=== PATIENT | male | born 1975 | race Caucasian/White ===

== ENCOUNTER 2016-09-29 21:31 | Emergency (ER) | payer BC ==
[2016-09-29] MEDS ORDERED: Ketorolac 30 MG/ML SDV IVPUSH ONE (22:00)
[2016-09-29] MEDS ORDERED: Sodium Chloride 0.9% 1,000 ML IV SCH (22:00)
[2016-09-29] MEDS ORDERED: Sodium Chloride 0.9% 2.5 ML Syringe FLUSH PRN (22:00)
[2016-09-29] MEDS ORDERED: Sodium Chloride 0.9% 10 ML Syringe FLUSH PRN (22:00)
--- NOTE | 2016-09-29 22:04 | EDM.PDOC ---
ED HPI RENAL/ - General Chief Complaint: Genitourinary Problem Stated Complaint: ABDOMINAL PAIN Time Seen by Provider: 09/29/16 21:55 Source of Information: Reports: Patient History Limitations: Reports: No limitations - History of Present Illness INITIAL COMMENTS - FREE TEXT/NARRATIVE: HISTORY AND PHYSICAL: History of present illness: [41-year-old male with a history of kidney stones and prior cholecystectomy now presents to the emergency department complaining of left flank pain radiating to his abdomen. Patient states he thinks he has another kidney stone. This pain has been intermittent today. Denies fevers chills sweats or shaking chills. Pain is not worse with movement. Review of systems: As per history of present illness and below otherwise all systems reviewed and negative. Past medical history: As per history of present illness and as reviewed below otherwise noncontributory. Surgical history: As per history of present illness and as reviewed below otherwise noncontributory. Social history: No reported history of drug or alcohol abuse. Family history: As per history of present illness and as reviewed below otherwise noncontributory. Physical exam: HEENT: Atraumatic, normocephalic, pupils reactive, negative for conjunctival pallor or scleral icterus, mucous membranes moist, throat clear, neck supple, nontender, trachea midline. Lungs: Clear to auscultation, breath sounds equal bilaterally, chest nontender. Heart: S1S2, regular, negative for clicks, rubs, or JVD. Abdomen: Soft, nondistended, nontender. Negative for masses or hepatosplenomegaly. Negative for costovertebral tenderness. Pelvis: Stable nontender. Genitourinary: Deferred. Rectal: Deferred. Extremities: Atraumatic, negative for cords or calf pain. Neurovascular unremarkable. Neuro: Awake, alert, oriented. Cranial nerves II through XII unremarkable. Cerebellum unremarkable. Motor and sensory unremarkable throughout. Exam nonfocal. Diagnostics: [] Therapeutics: [] Impression: [] Plan: [] Definitive disposition and diagnosis as appropriate pending reevaluation and review of above. 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 Genitourinary History: Reports: Renal calculus Other Musculoskeletal History: bilateral foot surgery 80's Other Hematologic History: hepatitis c - Infectious Disease History Infectious Disease History: Reports: Chicken pox, Hepatitis C - Past Surgical History GI Surgical History: Reports: Cholecystectomy, Colonoscopy Other Male Surgeries/Procedures: Stent on left kidney Social & Family History - Family History Family Medical History: Noncontributory - Tobacco Use Smoking Status *Q: Current Every Day Smoker Years of Tobacco use: 30 Packs/Tins Daily: 0.5 Used Tobacco, but Quit: No Second Hand Smoke Exposure: No - Caffeine Use Caffeine Use: Reports: Coffee Caffeine Use Comment: 3cups/day - Alcohol Use Days Per Week of Alcohol Use: 1 Number of Drinks Per Day: 4 Total Drinks Per Week: 4 - Recreational Drug Use Recreational Drug Use: No Drug Use in Last 12 Months: No Recreational Drug Type: Reports: Methamphetamine Recreational Drug Last Use: 4 years ago ED ROS GENERAL - Review of Systems Review Of Systems: See Below (Per history of present illness) ED EXAM, RENAL/ - Physical Exam Exam: See Below (Per history of present illness) Course - Vital Signs Text/Narrative:: Signs and symptoms consistent with possible renal colic versus left flank and abdominal pain of other etiology. Patient stable and well-appearing. Afebrile. Labs unremarkable CT negative for acute surgical finding however patient does have retained stool in left colon consistent with constipation. Patient's blood pressure mildly elevated. He has no history of essential hypertension. Discuss this result with patient and he is aware to follow up with his PCP for reevaluation and initiation of antihypertensive treatment as needed. Patient aware to use MiraLax [id number] as needed for constipation and regularity. He agrees with outpatient followup. Strict return precautions given Last Recorded V/S: Last Vital Signs Temp 36.4 C 09/30/16 00:50 Pulse 78 09/30/16 00:50 Resp 16 09/30/16 00:50 BP 133/84 09/30/16 00:50 Pulse Ox 97 09/30/16 00:50 - Orders/Labs/Meds Orders: Active Orders 24 hr Category Date Time Status Abdomen Pelvis w wo Cont [CT] Stat Exams 09/29/16 22:26 Taken Peripheral IV Insertion Adult [OM.PC] Stat Oth 09/29/16 22:00 Ordered Labs: Laboratory Tests 09/29/16 09/29/16 09/29/16 Range/Units 21:35 22:00 22:00 WBC 8.24 (4.0-11.0) K/uL RBC 5.29 (4.50-5.90) M/uL Hgb 16.9 (13.0-17.0) g/dL Hct 45.7 (38.0-50.0) % MCV 86.4 (80.0-98.0) fL MCH 31.9 (27.0-32.0) pg MCHC 37.0 (31.0-37.0) g/dL RDW Std Deviation 41.0 (28.0-62.0) fl RDW Coeff of Taj 13 (11.0-15.0) % Plt Count 151 (150-400) K/uL MPV 11.60 (7.40-12.00) fL Neut % (Auto) 45.9 L (48.0-80.0) % Lymph % (Auto) 43.7 H (16.0-40.0) % [place] % (Auto) 6.6 (0.0-15.0) % Eos % (Auto) 3.4 (0.0-7.0) % Baso % (Auto) 0.4 (0.0-1.5) % Neut # 3.8 (1.4-5.7) K/uL Lymph # 3.6 H (0.6-2.4) K/uL [place] # 0.5 (0.0-0.8) K/uL Eos # 0.3 (0.0-0.7) K/uL Baso # 0.0 (0.0-0.1) K/uL Nucleated RBC % 0.0 /100WBC Nucleated RBCs # 0 K/uL Sodium 140 (136-146) mmol/L Potassium 3.8 (3.5-5.1) mmol/L Chloride 109 (98-110) mmol/L Carbon Dioxide 19 L (21-31) mmol/L BUN 10 (6.0-23.0) mg/dL Creatinine 1.0 (0.6-1.5) mg/dL Est Cr Clr Drug Dosing 103.54 mL/min Estimated GFR (MDRD) > 60.0 ml/min Glucose 116 H (60-110) mg/dL Calcium 9.2 (8.8-10.8) mg/dL Urine Color YELLOW Urine Appearance CLEAR Urine pH 6.0 (5.0-8.0) Ur Specific [place] 1.025 (1.001-1.035) Urine Protein NEGATIVE (NEGATIVE) mg/dL Urine Glucose (UA) NEGATIVE (NEGATIVE) mg/dL Urine Ketones NEGATIVE (NEGATIVE) mg/dL Urine Occult Blood MODERATE (NEGATIVE) Urine Nitrite NEGATIVE (NEGATIVE) Urine Bilirubin NEGATIVE (NEGATIVE) Urine Urobilinogen 0.2 (<2.0) EU/dL Ur Leukocyte Esterase NEGATIVE (NEGATIVE) Urine RBC 2-6 (0-2/HPF) Urine WBC 0-2 (0-5/HPF) Ur Epithelial Cells RARE (NONE-FEW) Urine Bacteria RARE (NEGATIVE) Urine Mucus LIGHT (NONE-MOD) Meds: Medications Discontinued Medications Generic Name Dose Route Start Last Admin Trade Name Freq PRN Reason Stop Dose Admin Hydromorphone HCl 0.5 mg 09/29/16 23:02 09/29/16 23:11 Dilaudid IM 09/29/16 23:03 0.5 mg ONETIME ONE Administration Sodium Chloride 1,000 mls @ 999 mls/hr 09/29/16 22:00 09/29/16 22:14 Normal Saline IV 999 mls/hr ASDIRECTED ROSEMARY Administration Ketorolac Tromethamine 30 mg 09/29/16 22:00 09/29/16 22:15 Toradol IVPUSH 09/29/16 22:01 30 mg ONETIME ONE Administration Sodium Chloride 10 ml 09/29/16 22:00 Saline Flush FLUSH ASDIRECTED PRN Keep Vein Open Sodium Chloride 2.5 ml 09/29/16 22:00 Saline Flush FLUSH ASDIRECTED PRN Keep Vein Open Departure - Departure Time of Disposition: 00:39 Disposition: Home, Self-Care 01 Condition: good Clinical Impression: Constipation, Abdominal pain, Hypertension Instructions: Abdominal Pain, Adult, Constipation, Adult, Hypertension Referrals: PCP,None [Primary Care Provider] - Forms: ED Department Discharge Additional Instructions: Extensive workup was done today for evaluation of your abdominal and flank pain. You have no kidney stone in your kidney or ureter. Your labs were unremarkable. Her CAT scan showed only constipation in your left descending colon. This is likely the cause of your pain today. Your urine does not show signs of infection or in the urine from a recently passed kidney stone. Your blood pressure was elevated today and suggestive of hypertension. Followup with your Dr. in one to 2 days for reevaluation and to determine if you have essential hypertension which requires treatment. Return immediately for new severe or worsening symptoms - My Orders Last 24 Hours: My Active Orders 09/29/16 22:00 Peripheral IV Insertion Adult [OM.PC] Stat 09/29/16 22:26 Abdomen Pelvis w wo Cont [CT] Stat - Assessment/Plan Last 24 Hours: My Active Orders 09/29/16 22:00 Peripheral IV Insertion Adult [OM.PC] Stat 09/29/16 22:26 Abdomen Pelvis w wo Cont [CT] Stat
[2016-09-29 22:21] LABS: CHLORIDE,CL 109 mmol/L (98-110); SODIUM,NA 140 mmol/L (136-146)
[2016-09-29] MEDS ORDERED: HYDROmorphone 1 MG/ML Syringe IM ONE (23:02)
[2016-09-30 01:06] VITALS: BP 133/84
--- NOTE | 2016-09-30 19:51 | CT ---
EXAM DATE: 09/29/16 PATIENT'S AGE: 41 Patient: IVAN CRAWFORD Facility: [place], [place] Site . Site : [id number] Study: CT Abdomen/Pelvis W/ and W/O Cont [id number]/19/2017 11:03:37 PM Ordering Physician: Jose Su Final Report: INDICATION: Right-sided pain TECHNIQUE: CT abdomen and pelvis acquired with and without IV contrast. COMPARISON: None FINDINGS: Lower chest: Unremarkable. Liver: Unremarkable. Spleen: Benign punctate splenic calcifications. Pancreas: Unremarkable. Gallbladder and bile ducts: Gallbladder is absent. Kidneys: Punctate nonobstructing calculus superior pole left kidney. Adrenal glands: Unremarkable. GI tract: Retained stool in the ascending colon. . Appendix is normal. Vascular structures: Unremarkable. Lymph nodes: Unremarkable. Miscellaneous: Unremarkable. No free air or significant free fluid. Pelvic Organs: Unremarkable. Bones: Unremarkable for age. IMPRESSION: No renal, ureteral or bladder calculi. No hydronephrosis or hydroureter. Normal urinary bladder. Normal appendix. Retained stool in the ascending colon. Dictated by Paul Schafer MD @ 09/29/2016 11:47:24 PM Dictated by: Paul Schafer MD @ 09/29/2016 23:47:27 (Electronic Signature) Report Signed by Proxy and Original Signed Document filed in the Medical Record. [facility]
== END 2016-09-30 00:50 | disposition home or self-care (01) ==
LOC: MW.ED 21:31
DX: K59.00 Constipation, unspecified (principal); R10.9 Unspecified abdominal pain; I10 Essential (primary) hypertension; B19.20 Unspecified viral hepatitis C without hepatic coma; R16.0 Hepatomegaly, not elsewhere classified; F17.200 Nicotine dependence, unspecified, uncomplicated; Z88.0 Allergy status to penicillin
CPT/HCPCS: 36415; 74178; 80048; 81001; 85025; 96361; 96372; 96374; 99284; J1170; J1885; J7040

== ENCOUNTER 2018-09-30 11:20 | Emergency (ER) | payer BC ==
--- NOTE | 2018-09-30 11:28 | EDM.PDOC ---
ED HPI GENERAL MEDICAL PROBLEM - General Chief Complaint: Abdominal Pain Stated Complaint: STOMACH BURNING Time Seen by Provider: 09/30/18 11:21 Source of Information: Reports: Patient History Limitations: Reports: No Limitations - History of Present Illness INITIAL COMMENTS - FREE TEXT/NARRATIVE: HISTORY AND PHYSICAL: History of present illness: Patient is a 43-year-old male who presents to the ED today with concerns of abdominal pain that he rates an 8 out of 10. Patient states that this started last night and he has had numerous episodes of vomiting without blood. He states he's also had several episodes of watery diarrhea. He states he feels as if his "stomach is burning". He states he is also felt sweaty without chills and has not checked any temperatures at home. He has had a history of cholecystectomy. Patient states he's not been able to eat or drink today due to the vomiting. Patient denies headache, burning with urination, testicular pain, dizziness, shortness of breath, difficulties breathing, palpitations, or all other GI, , cardiovascular, or respiratory concerns. Patient denies any health history. Review of systems: As per history of present illness and below otherwise all systems reviewed and negative. Past medical history: As per history of present illness and as reviewed below otherwise noncontributory. Surgical history: As per history of present illness and as reviewed below otherwise noncontributory. Social history: No reported history of drug or alcohol abuse. Family history: As per history of present illness and as reviewed below otherwise noncontributory. Physical exam: General: Patient sitting comfortably in no acute distress and nontoxic appearing. Patient is slightly sweaty on exam. HEENT: Atraumatic, normocephalic, pupils reactive, negative for conjunctival pallor or scleral icterus, mucous membranes dry, throat clear, neck supple, nontender, trachea midline. No meningeal signs. Lungs: Clear to auscultation, breath sounds equal bilaterally, chest nontender. Heart: S1S2, regular, negative for clicks, rubs, or overt murmur. Abdomen: Obese. Severe pain to palpation of the generalized abdomen. Firm, distended. Negative for masses or hepatosplenomegaly. Negative for costovertebral tenderness. No rigidity, rebound, guarding. Pelvis: Stable nontender. Genitourinary: Deferred. Rectal: Deferred. Extremities: Atraumatic, negative for cords or calf pain. Neurovascular unremarkable. Neuro: Awake, alert, oriented. Cranial nerves II through XII unremarkable. Cerebellum unremarkable. Motor and sensory unremarkable throughout. Exam nonfocal. Notes: On exam, patient did seem slightly sweaty with severe generalized abdominal pain. We'll do lab work and imaging today. Labs today are reassuring. Chest x-ray shows no acute cardiopulmonary process. Patient does have trace blood in his urine. Diagnostics: CBC, CMP, troponin, lipase, UA, abdominal and pelvic CT, stool studies, EKG, cardiac monitoring, chest x-ray, H. pylori Therapeutics: Saline, Zofran, Toradol Prescriptions: Impression: [] Plan: [] Definitive disposition and diagnosis as appropriate pending reevaluation and review of above. lower bilateral abdominal Pain Score (Numeric/FACES): 10 - Related Data Allergies Allergy/AdvReac Type Severity Reaction Status Date / Time Penicillins AdvReac Nausea and Verified 09/30/18 11:35 Vomiting Home Meds: Home Meds . 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 Genitourinary History: Reports: Renal Calculus Other Musculoskeletal History: bilateral foot surgery 80's Other Hematologic History: hepatitis c - Infectious Disease History Infectious Disease History: Reports: Chicken Pox, Hepatitis C - Past Surgical History GI Surgical History: Reports: Cholecystectomy, Colonoscopy Other Male Surgeries/Procedures: Stent on left kidney Social & Family History - Family History Family Medical History: Noncontributory - Caffeine Use Caffeine Use: Reports: Coffee Caffeine Use Comment: 3cups/day ED ROS GENERAL - Review of Systems Review Of Systems: ROS reveals no pertinent complaints other than HPI. ED EXAM, GI/ABD - Physical Exam Exam: See Below (see dictation) Course - Vital Signs Last Recorded V/S: Last Vital Signs Temp 97.4 F 09/30/18 11:36 Pulse 93 09/30/18 11:36 Resp 16 09/30/18 11:36 BP 159/102 H 09/30/18 11:36 Pulse Ox 96 09/30/18 11:36 - Orders/Labs/Meds Orders: Active Orders 24 hr Category Date Time Status Cardiac Monitoring [RC] . DIRECTED Care 09/30/18 11:46 Active EKG Documentation Completion [RC] STAT Care 09/30/18 11:43 Active CDIFF TOX A+B [OP] Stat Lab 09/30/18 11:47 Ordered CULTURE STOOL + CAMPY+SHIGATOX [RM] Stat Lab 09/30/18 11:47 Ordered OVA & PARASITES BY IMMUNOASSAY [MREF] Stat Lab 09/30/18 11:47 Ordered Labs: Laboratory Tests 09/30/18 09/30/18 09/30/18 Range/Units 11:49 11:49 13:30 WBC 11.05 H (4.0-11.0) K/uL RBC 5.49 (4.50-5.90) M/uL Hgb 17.5 H (13.0-17.0) g/dL Hct 46.9 (38.0-50.0) % MCV 85.4 (80.0-98.0) fL MCH 31.9 (27.0-32.0) pg MCHC 37.3 H (31.0-37.0) g/dL RDW Std Deviation 40.9 (28.0-62.0) fl RDW Coeff of Taj 13 (11.0-15.0) % Plt Count 169 (150-400) K/uL MPV 11.80 (7.40-12.00) fL Neut % (Auto) 71.2 (48.0-80.0) % Lymph % (Auto) 16.6 (16.0-40.0) % [place] % (Auto) 10.6 (0.0-15.0) % Eos % (Auto) 1.3 (0.0-7.0) % Baso % (Auto) 0.3 (0.0-1.5) % Neut # (Auto) 7.9 H (1.4-5.7) K/uL Lymph # (Auto) 1.8 (0.6-2.4) K/uL [place] # (Auto) 1.2 H (0.0-0.8) K/uL Eos # (Auto) 0.1 (0.0-0.7) K/uL Baso # (Auto) 0.0 (0.0-0.1) K/uL Nucleated RBC % 0.0 /100WBC Nucleated RBCs # 0 K/uL Sodium 141 (136-148) mmol/L Potassium 3.6 (3.5-5.1) mmol/L Chloride 104 (98-107) mmol/L Carbon Dioxide 23.6 (21.0-32.0) mmol/L BUN 9 (7.0-18.0) mg/dL Creatinine 1.1 (0.8-1.3) mg/dL Est Cr Clr Drug Dosing 92.22 mL/min Estimated GFR (MDRD) > 60.0 ml/min Glucose 124 H (74-106) mg/dL Calcium 9.1 (8.5-10.1) mg/dL Total Bilirubin 0.6 (0.2-1.0) mg/dL AST 15 (15-37) IU/L ALT 37 (14-63) IU/L Alkaline Phosphatase 79 (46-116) U/L Troponin I < 0.050 (0.000-0.056) ng/mL Total Protein 8.5 H (6.4-8.2) g/dL Albumin 4.3 (3.4-5.0) g/dL Globulin 4.2 H (2.6-4.0) g/dL Albumin/Globulin Ratio 1.0 (0.9-1.6) Lipase 116 (73-393) U/L Urine Color YELLOW Urine Appearance CLEAR Urine pH 8.0 (5.0-8.0) Ur Specific [place] 1.010 (1.001-1.035) Urine Protein NEGATIVE (NEGATIVE) mg/dL Urine Glucose (UA) NEGATIVE (NEGATIVE) mg/dL Urine Ketones NEGATIVE (NEGATIVE) mg/dL Urine Occult Blood TRACE-INTACT H (NEGATIVE) Urine Nitrite NEGATIVE (NEGATIVE) Urine Bilirubin NEGATIVE (NEGATIVE) Urine Urobilinogen 0.2 (<2.0) EU/dL Ur Leukocyte Esterase NEGATIVE (NEGATIVE) Urine RBC 0-2 (0-2/HPF) Urine WBC 0-1 (0-5/HPF) Ur Epithelial Cells RARE (NONE-FEW) Urine Bacteria RARE (NEGATIVE) Meds: Medications Discontinued Medications Generic Name Dose Route Start Last Admin Trade Name Freq PRN Reason Stop Dose Admin Sodium Chloride 1,000 mls @ 999 mls/hr 09/30/18 11:46 09/30/18 11:54 Normal Saline IV 09/30/18 12:46 999 mls/hr STAT ONE Administration Iopamidol 100 ml 09/30/18 12:48 09/30/18 12:49 Isovue Multipack-370 (76%) IVPUSH 09/30/18 12:49 100 ml ONETIME ONE Administration Ketorolac Tromethamine 30 mg 09/30/18 11:44 09/30/18 11:54 Toradol IVPUSH 09/30/18 11:45 30 mg ONETIME ONE Administration Ondansetron HCl 4 mg 09/30/18 11:44 09/30/18 11:54 Zofran IVPUSH 09/30/18 11:45 4 mg ONETIME ONE Administration Departure - Departure Time of Disposition: 14:13 Disposition: Home, Self-Care 01 Condition: Good Clinical Impression: Gastritis - Discharge Information Referrals: PCP,Unknown [Primary Care Provider] - Forms: ED Department Discharge Additional Instructions: The following information is given to patients seen in the emergency department who are being discharged to home. This information is to outline your options for follow-up care. We provide all patients seen in our emergency department with a follow-up referral. The need for follow-up, as well as the timing and circumstances, are variable depending upon the specifics of your emergency department visit. If you don't have a primary care physician on staff, we will provide you with a referral. We always advise you to contact your personal physician following an emergency department visit to inform them of the circumstance of the visit and for follow-up with them and/or the need for any referrals to a consulting specialist. The emergency department will also refer you to a specialist when appropriate. This referral assures that you have the opportunity for follow-up care with a specialist. All of these measure are taken in an effort to provide you with optimal care, which includes your follow-up. Under all circumstances we always encourage you to contact your private physician who remains a resource for coordinating your care. When calling for follow-up care, please make the office aware that this follow-up is from your recent emergency room visit. If for any reason you are refused follow-up, please contact the [facility] Emergency Department at and asked to speak to the emergency department charge nurse. [facility] [address] [place] [address] [facility] [address] [place] [address] 1. [place] food as tolerated and drinking plenty of fluids as discussed. 2. Follow up with primary care provider 3. Return to ED as needed as discussed - My Orders Last 24 Hours: My Active Orders 09/30/18 11:43 EKG Documentation Completion [RC] STAT 09/30/18 11:46 Cardiac Monitoring [RC] . DIRECTED 09/30/18 11:47 CDIFF TOX A+B [OP] Stat CULTURE STOOL + CAMPY+SHIGATOX [RM] Stat OVA & PARASITES BY IMMUNOASSAY [MREF] Stat - Assessment/Plan Last 24 Hours: My Active Orders 09/30/18 11:43 EKG Documentation Completion [RC] STAT 09/30/18 11:46 Cardiac Monitoring [RC] . DIRECTED 09/30/18 11:47 CDIFF TOX A+B [OP] Stat CULTURE STOOL + CAMPY+SHIGATOX [RM] Stat OVA & PARASITES BY IMMUNOASSAY [MREF] Stat
[2018-09-30 11:39] VITALS: BP 159/102
[2018-09-30] MEDS ORDERED: Ondansetron 4 MG/2 ML SDV IVPUSH ONE (11:44)
[2018-09-30] MEDS ORDERED: Ketorolac 30 MG/ML SDV IVPUSH ONE (11:44)
[2018-09-30] MEDS ORDERED: Sodium Chloride 0.9% 1,000 ML IV ONE (11:46)
[2018-09-30 12:23] LABS: CHLORIDE,CL 104 mmol/L (98-107); SODIUM,NA 141 mmol/L (136-148)
[2018-09-30] MEDS ORDERED: Iopamidol 755 MG/ML 500 ML Multipack Bottle IVPUSH ONE (12:48)
--- NOTE | 2018-09-30 13:34 | CR ---
EXAMINATION: Portable chest radiograph. HISTORY: Shortness of breath. FINDINGS: The trachea is midline. The cardiomediastinal silhouette is within normal limits. No pulmonary infiltrates, effusions or pneumothorax. Osseous structures appear unremarkable. IMPRESSION: No acute cardiopulmonary process.
--- NOTE | 2018-09-30 14:01 | CT ---
CT of the abdomen and pelvis with contrast. HISTORY: Pain TECHNIQUE: Axial CT images were obtained of the abdomen and pelvis following administration of 100 mL of Isovue-370 in the right antecubital fossa without complication. Coronal and sagittal reconstructions obtained. FINDINGS: The lung bases are clear, no pleural effusion. Mild dependent atelectasis. Mild focal infiltration noted near the falciform ligament. Splenic granulomata are noted. Pancreas and adrenal glands appear normal. Cholecystectomy clips are present. No bulky retroperitoneal lymphadenopathy or abdominal ascites. The kidneys enhance and function symmetrically without evidence of obstructive uropathy. The large and small bowel are normal in caliber without evidence of obstruction. No focal pericolonic inflammation or stranding. The appendix is normal. No pelvic lymphadenopathy or free pelvic fluid. Moderate endplate sclerosis and degenerative changes noted at L4-L5. IMPRESSION: 1. No acute findings noted within the abdomen or pelvis.
== END 2018-09-30 14:28 | disposition home or self-care (01) ==
LOC: MW.ED 11:20
DX: K29.70 Gastritis, unspecified, without bleeding (principal); Z88.0 Allergy status to penicillin
CPT/HCPCS: 36415; 71045; 74177; 80053; 81001; 83690; 84484; 85025; 93005; 96361; 96374; 96375; 99284; J1885; J2405; J7040; Q9967